=== PATIENT | male | born 2000 | race African-American/Black ===

== ENCOUNTER 2024-02-08 12:10 | Day surgery (SDC) | payer BC, MEDICAID ==
[~2024-02-08] VITALS: Ht 160 cm; Wt 50.0 kg
[~2024-02-08 12:10] MED LIST: BALANCED SALT IRRIG SOLN 15ML ONE
[2024-02-08 12:20] VITALS: O2SAT 100
[2024-02-08 12:21] VITALS: BP 109/71; PULSE 73; RESP 16; TEMP 98.1; O2SAT 100
[2024-02-08 15:00] LABS: BASOPHILS % 0.3 % (0.0-2.0); EOSINOPHILS % 3.8 % (0.0-5.0); HEMATOCRIT. 44.7 % (42.0-52.0); HEMOGLOBIN. 14.8 g/dL (14.0-18.0); LYMPHOCYTES % 19.3 % (20.0-50.0); MEAN CORPUSCULAR HGB CONC 33.1 g/dL (31.0-37.0); MEAN CORPUSCULAR VOLUME 93.7 fL (80.0-94.0); MEAN PLATELET VOLUME 9.1 fl (7.4-10.4); MONOCYTES % 6.6 % (2.0-8.0); PLATELET 203 x1000/uL (130-400); RED BLOOD CELL COUNT 4.77 mill/uL (4.7-6.1); RED CELL DISTRIBUTION WIDTH 13.4 % (11.6-14.6); WHITE BLOOD COUNT 8.5 x1000/uL (4.5-11.0)
[2024-02-08 15:08] LABS: CHLORIDE 112 mEq/L (98-107); POTASSIUM 3.9 mEq/L (3.5-5.1); SODIUM 141 mEq/L (136-145)
[2024-02-08 15:09] LABS: CALCIUM 9.8 mg/dL (8.7-10.4); CARBON DIOXIDE 24 mEq/L (21-32)
[2024-02-08 15:14] LABS: CREATININE 1.4 mg/dL (0.6-1.3); GLUCOSE 79 mg/dL (70-105); UREA NITROGEN BLOOD 12 mg/dL (9-23)
[2024-02-08 15:16] LABS: ALANINE AMINOTRANSFERASE < 7 IU/L (10-49); ASPARTATE AMINOTRANSFERASE 16 IU/L (<34); BILIRUBIN TOTAL 1.1 mg/dL (0.1-1.0); PROTEIN TOTAL 7.9 g/dL (6.0-8.3)
[2024-02-08 15:18] LABS: PARTIAL THROMBOPLASTIN TIME 27.9 sec (23.4-31.0); PROTHROMBIN TIME 11.3 sec (9.6-11.0)
[2024-02-08] MEDS ORDERED: TRIAMCINOLONE ACETONIDE 40MG/ML 1ML VIAL ONE (17:13)
== END 2024-02-08 18:20 | disposition home or self-care (01) ==
LOC: ER 12:17 → EDBEDREQ 15:10 → OR 17:50
PROVIDERS: ATTEND Ophthalmology
DX: H40.89 Other specified glaucoma (principal); H21.02 Hyphema, left eye; Z79.899 Other long term (current) drug therapy; Z98.890 Other specified postprocedural states
CPT/HCPCS: 93005; 80053; 85025; 85610; 85730; 86850; 86900; 86901; 36415; 99291; 66180; J3490 ×2; J3301; C1783